=== PATIENT | male | born 1940 | race Caucasian/White ===

== ENCOUNTER 2018-07-06 08:15 | Outpatient (CLI) | payer MEDICARE, MEDICAID ==
[~2018-07-06 08:15] MED LIST: AMLO2.5T3 PO; LISI2.5T2 PO; METO-356 PO; [UNRECOGNIZED DRUG - REMARK] PO
[2018-07-06] MEDS ORDERED: ACETAMINOPHEN ES 500 MG TABLET ONE (16:45)
[2018-07-06] MEDS ORDERED: CEPHALEXIN MONOHYDRATE 500 MG CAPSULE PO ONE (16:46)
[2018-07-06] MEDS ORDERED: SULFAMETH/TRIMETH 800/160 MG 1 UDTAB TABLET PO ONE (16:46)
== END 2018-07-06 23:59 | disposition home or self-care (01) ==
LOC: WOU 08:15
PROVIDERS: ATTEND Podiatrist Foot & Ankle Surgery
DX: L89.893 Pressure ulcer of other site, stage 3 (principal); M10.9 Gout, unspecified; L03.031 Cellulitis of right toe; M20.41 Other hammer toe(s) (acquired), right foot; L84 Corns and callosities; I10 Essential (primary) hypertension; E78.5 Hyperlipidemia, unspecified; Z79.899 Other long term (current) drug therapy; Z87.891 Personal history of nicotine dependence
CPT/HCPCS: 11042; 87070-TC; 87075-TC; 87186-TC; A6402; Z7610

== ENCOUNTER 2018-07-13 08:54 | Outpatient (CLI) | payer MEDICARE, MEDICAID | END 2018-07-13 23:59 | disposition home or self-care (01) | LOC: RAD 08:54 | PROVIDERS: ATTEND Podiatrist Foot & Ankle Surgery | DX: M19.072 Primary osteoarthritis, left ankle and foot (principal); M19.071 Primary osteoarthritis, right ankle and foot; M21.072 Valgus deformity, not elsewhere classified, left ankle | CPT/HCPCS: 73630-TC ==

== ENCOUNTER 2018-07-20 08:35 | Outpatient (CLI) | payer MEDICARE, OTHER ==
[~2018-07-20 08:35] MED LIST changes: -AMLO2.5T3 PO; +AMLO2.5T4 PO
== END 2018-07-20 23:59 | disposition home or self-care (01) ==
LOC: WOU 08:35
PROVIDERS: ATTEND Podiatrist Foot & Ankle Surgery
DX: L89.894 Pressure ulcer of other site, stage 4 (principal); L84 Corns and callosities; M20.41 Other hammer toe(s) (acquired), right foot; L03.031 Cellulitis of right toe; M10.9 Gout, unspecified; M19.071 Primary osteoarthritis, right ankle and foot
CPT/HCPCS: 11044; A6402

== ENCOUNTER 2018-08-01 12:00 | Outpatient (CLI) | payer MEDICARE, OTHER | END 2018-08-01 23:59 | disposition home health service (06) | LOC: WOU 12:00 | PROVIDERS: ATTEND Podiatrist Foot & Ankle Surgery | DX: L89.893 Pressure ulcer of other site, stage 3 (principal); L03.031 Cellulitis of right toe; B95.7 Other staphylococcus as the cause of diseases classified elsewhere; M1A.9XX1 Chronic gout, unspecified, with tophus (tophi); M20.5X9 Other deformities of toe(s) (acquired), unspecified foot; R60.0 Localized edema; Z79.52 Long term (current) use of systemic steroids; Z79.82 Long term (current) use of aspirin; Z79.899 Other long term (current) drug therapy | CPT/HCPCS: 11044; 87070-TC; 87075-TC; 87186-TC; A6209; A6402; J3490 ==

== ENCOUNTER 2018-08-10 12:47 | Outpatient (CLI) | payer MEDICARE, OTHER | END 2018-08-10 23:59 | disposition home health service (06) | LOC: WOU 12:47 | PROVIDERS: ATTEND Podiatrist Foot & Ankle Surgery | DX: L89.893 Pressure ulcer of other site, stage 3 (principal); M1A.9XX1 Chronic gout, unspecified, with tophus (tophi); M20.41 Other hammer toe(s) (acquired), right foot; Z79.82 Long term (current) use of aspirin; Z79.52 Long term (current) use of systemic steroids | CPT/HCPCS: 11044; A6402; Z7610 ==

== ENCOUNTER 2018-08-17 13:00 | Outpatient (CLI) | payer MEDICARE, OTHER | END 2018-08-17 23:59 | disposition home health service (06) | LOC: WOU 13:00 | PROVIDERS: ATTEND Podiatrist Foot & Ankle Surgery | DX: L89.893 Pressure ulcer of other site, stage 3 (principal); M1A.9XX1 Chronic gout, unspecified, with tophus (tophi); M20.41 Other hammer toe(s) (acquired), right foot; S90.121A Contusion of right lesser toe(s) without damage to nail, initial encounter; X58.XXXA Exposure to other specified factors, initial encounter; Y92.89 Other specified places as the place of occurrence of the external cause; Z79.52 Long term (current) use of systemic steroids | CPT/HCPCS: 10140; 11042; A6402 ==

== ENCOUNTER 2018-08-29 12:28 | Outpatient (CLI) | payer MEDICARE, OTHER | END 2018-08-29 23:59 | disposition home health service (06) | LOC: WOU 12:28 | PROVIDERS: ATTEND Podiatrist Foot & Ankle Surgery | DX: L89.893 Pressure ulcer of other site, stage 3 (principal); L03.115 Cellulitis of right lower limb; M1A.9XX1 Chronic gout, unspecified, with tophus (tophi); M20.41 Other hammer toe(s) (acquired), right foot; L84 Corns and callosities; M79.674 Pain in right toe(s) | CPT/HCPCS: 11044; 11055; A6402 ==

== ENCOUNTER 2018-09-05 12:30 | Outpatient (CLI) | payer MEDICARE, OTHER | END 2018-09-05 23:59 | disposition home health service (06) | LOC: WOU 12:30 | PROVIDERS: ATTEND Podiatrist Foot & Ankle Surgery | DX: L89.893 Pressure ulcer of other site, stage 3 (principal); M20.41 Other hammer toe(s) (acquired), right foot; M10.9 Gout, unspecified; G89.29 Other chronic pain; Z79.82 Long term (current) use of aspirin; L03.031 Cellulitis of right toe | CPT/HCPCS: 11044; A6402 ==

== ENCOUNTER 2018-09-12 11:55 | Outpatient (CLI) | payer MEDICARE, OTHER | END 2018-09-12 23:59 | disposition home health service (06) | LOC: WOU 11:55 | PROVIDERS: ATTEND Podiatrist Foot & Ankle Surgery | DX: L89.893 Pressure ulcer of other site, stage 3 (principal); L60.0 Ingrowing nail; M1A.9XX1 Chronic gout, unspecified, with tophus (tophi); M20.41 Other hammer toe(s) (acquired), right foot | CPT/HCPCS: 11044; 11730; A6402 ==

== ENCOUNTER 2018-09-19 12:03 | Outpatient (CLI) | payer MEDICARE, OTHER | END 2018-09-19 23:59 | disposition home health service (06) | LOC: WOU 12:03 | PROVIDERS: ATTEND Podiatrist Foot & Ankle Surgery | DX: L89.893 Pressure ulcer of other site, stage 3 (principal); M20.41 Other hammer toe(s) (acquired), right foot; M1A.9XX1 Chronic gout, unspecified, with tophus (tophi) | CPT/HCPCS: 11044; A6402 ==

== ENCOUNTER 2018-09-28 12:20 | Outpatient (CLI) | payer MEDICARE, OTHER | END 2018-09-28 23:59 | disposition home health service (06) | LOC: WOU 12:20 | PROVIDERS: ATTEND Podiatrist Foot & Ankle Surgery | DX: L89.893 Pressure ulcer of other site, stage 3 (principal); M1A.9XX1 Chronic gout, unspecified, with tophus (tophi); Z79.82 Long term (current) use of aspirin; M20.41 Other hammer toe(s) (acquired), right foot | CPT/HCPCS: 11044; A6402 ==

== ENCOUNTER 2018-10-09 10:20 | Outpatient (CLI) | payer MEDICARE, OTHER | END 2018-10-09 23:59 | disposition home health service (06) | LOC: WOU 10:20 | PROVIDERS: ATTEND Podiatrist Foot & Ankle Surgery | DX: L89.893 Pressure ulcer of other site, stage 3 (principal); M10.9 Gout, unspecified; R60.9 Edema, unspecified; M20.41 Other hammer toe(s) (acquired), right foot; Z79.82 Long term (current) use of aspirin; Z79.899 Other long term (current) drug therapy | CPT/HCPCS: 11043; A6402 ==

== ENCOUNTER 2018-10-16 09:00 | Outpatient (CLI) | payer MEDICARE, OTHER | END 2018-10-16 23:59 | disposition home health service (06) | LOC: WOU 09:00 | PROVIDERS: ATTEND Podiatrist Foot & Ankle Surgery | DX: L89.893 Pressure ulcer of other site, stage 3 (principal); M10.9 Gout, unspecified; M20.41 Other hammer toe(s) (acquired), right foot; R60.9 Edema, unspecified; Z79.82 Long term (current) use of aspirin; Z79.899 Other long term (current) drug therapy | CPT/HCPCS: 11044; A6402 ==